=== PATIENT | female | born 1955 | race Caucasian/White ===

== ENCOUNTER → 2017-08-26 | Outpatient (CLI) | payer OTHER | LOC: FIMAGING 13:35 | PROVIDERS: ATTEND Orthopaedic Surgery | DX: Z01.818 Encounter for other preprocedural examination (principal); M17.12 Unilateral primary osteoarthritis, left knee; M25.462 Effusion, left knee; M71.22 Synovial cyst of popliteal space [Baker], left knee ==

== ENCOUNTER 2017-09-02 06:51 | Observation (INO) | payer OTHER ==
[~2017-09-02 06:51] MED LIST: ROPIVACAINE 0.2% 80 MG, EPINEPHrine 0.2 MG, KETOROLAC TROMETHAMINE 30 MG in SYRINGE 0 ML IU ONE; TRANEXAMIC ACID 3,000 MG in NS (SYRINGE) 50 ML IRR ONE
--- NOTE | 2017-09-02 07:12 | PDHPUP ---
History & Physical Update H&P update statement: This history and physical update is based on an assessment of the patient which was completed after admission or registration (within 24 hours), but prior to the surgery/procedure. H&P update: H&P reviewed & patient examined, no change in patient's condition since H&P completed
[2017-09-02] MEDS ORDERED: NON-FORMULARY NEW DRUG (Fluticasone Nasal [Flonase Nasal Spray] 1 SPRAYS) NASAL PRN (07:23)
[2017-09-02] MEDS ORDERED: TRANEXAMIC ACID 3,000 MG/50 ML BAG IRR ONE (07:26)
[2017-09-02] MEDS ORDERED: LR 1,000 ML IV ONE (08:06)
[2017-09-02] MEDS ORDERED: DEXAMETHASONE 4 MG/ML VIAL IVP ONE (08:06)
[2017-09-02] MEDS ORDERED: ceFAZolin 2 GM/SWFI 2 GM/20 ML SYR IVP ONE (08:06)
[2017-09-02] MEDS ORDERED: FAMOTIDINE 20 MG TAB PO ONE (08:06)
[2017-09-02] MEDS ORDERED: ACETAMINOPHEN 325 MG TAB PO ONE (08:06)
[2017-09-02] MEDS ORDERED: FLUTICASONE NASAL 120 SPRAYS/16 GM MDI EACHNARE PRN (08:11)
--- NOTE | 2017-09-02 08:34 | PDANEPAE ---
ANE History of Present Illness 62 yo female with OA for L TKA. ANE Past Medical History - Cardiovascular History Hx Hypertension: Yes Hx Arrhythmias: No Hx Chest Pain: No Hx Coronary Artery / Peripheral Vascular Disease: No Hx CHF / Valvular Disease: No Hx Palpitations: No - Pulmonary History Hx COPD: No Hx Asthma/Reactive Airway Disease: No Hx Recent Upper Respiratory Infection: No Hx Oxygen in Use at Home: No Hx Sleep Apnea: No Sleep Apnea Screening Result - Last Documented: Negative - Neurologic History Hx Cerebrovascular Accident: No Hx Seizures: No Hx Dementia: No - Endocrine History Hx Diabetes: No Obesity: no - Renal History Hx Renal Disorders: No - Liver History Hx Hepatic Disorders: No - Neurological & Psychiatric Hx Hx Neurological and Psychiatric Disorders: Yes Neurological / Psychiatric History Comment: DEPRESSION WITH MENAPAUSE - Cancer History Hx Cancer: Yes Cancer History Comment: SKIN CA - Congenital Disorder History Hx Congenital Disorders: No - GI History GERD: moderate Hx Gastrointestinal Disorders: Yes Gastrointestinal History Comment: GERD - Other Health History Other Health History: NONE - Chronic Pain History Chronic Pain: Yes (R hip) - Surgical History Prior Surgeries: L4/5 fusion,L3 decompression ANE Review of Systems Review of Systems: - Exercise capacity METS (RN): 5 METS ANE Patient History - Allergies Allergies/Adverse Reactions: trazodone Allergy (Verified 08/20/17 11:52) FEET SWELLING - Home Medications Home medications: home medication list seen and reviewed Home Medications: Citalopram [CeleXA] 20 mg PO DAILY 08/20/17 [Last Taken 09/01/17 21:00] Diclofenac Sodium [Voltaren 50 MG (*)] 50 mg PO TID 08/20/17 [Last Taken ] Estradiol [Vivelle-Dot 0.025MG (*)] 0.025 mg TD MO 08/20/17 [Last Taken 08/19/17 ] Fluticasone Nasal [Flonase Nasal Penrose (RX)] 1 sprays NASAL DAILY PRN 08/20/17 [ Last Taken 09/02/17 05:30] Glucosamine/Chondroitin [Glucosamine/Chondroitin (*)] 1 each PO BID 08/20/17 [ Last Taken 08/19/17] Herbals/Supplements -Info Only 1 ea PO DAILY 08/20/17 [Last Taken 08/19/17] Lisinopril [Zestril 40 mg (*)] 40 mg PO HS 08/20/17 [Last Taken 09/01/17 21:00] Omeprazole [Prilosec 20 mg] 20 mg PO DAILY 08/20/17 [Last Taken 09/01/17 21:00] Progesterone, Micronized [Progesterone] 100 mg PO Q2D@21 08/20/17 [Last Taken ] amLODIPine BESYLATE [Norvasc 5 mg (*)] 5 mg PO HS 08/20/17 [Last Taken 09/01/17 21:00] - NPO status NPO Since - Liquids (Date): 09/02/17 NPO Since - Liquids (Time): 05:30 NPO Since - Solids (Date): 09/01/17 NPO Since - Solids (Time): 19:30 - Anes Hx Anes Hx: no prior problems - Smoking Hx Smoking Status: Former smoker Marijuana use: No - Alcohol Use Alcohol Use: Occasionally - Family Anes Hx Family Anes Hx: neg - N/A Family Hx Anesthesia Complications: none ANE Labs/Vital Signs - Vital Signs Blood Pressure: 157/88 Heart Rate: 68 Respiratory Rate: 16 O2 Sat (%): 98 Height: 162.56 cm Weight: 58.967 kg ANE Physical Exam - Airway Neck exam: FROM Mallampati Score: Class 2 Mouth exam: normal dental/mouth exam - Pulmonary Pulmonary: clear to auscultation - Cardiovascular Cardiovascular: regular rate and rhythym - ASA Status ASA Status: II ANE Anesthesia Plan Anesthesia Plan: spinal Regional Anesthesia: adductor canal FNB
[2017-09-02] MEDS ORDERED: fentaNYL 100 MCG/2 ML INJ ONE (09:07)
[2017-09-02] MEDS ORDERED: LIDOCAINE 2% 5 ML SDV ONE (09:07)
[2017-09-02] MEDS ORDERED: PROPOFOL/EMULSION 500 MG/50 ML BOTTLE IV ONE (09:07)
[2017-09-02] MEDS ORDERED: ROPIVACAINE HCL 150 MG/30 ML INJ ONE (09:54)
[2017-09-02] MEDS ORDERED: DIAZEPAM 10 MG/2 ML SYR IVP PRN (10:18)
[2017-09-02] MEDS ORDERED: ALBUTEROL 3 ML DEYVIAL IH PRN (10:18)
[2017-09-02] MEDS ORDERED: ONDANSETRON 4 MG/2 ML VIAL IVP PRN ×2 (10:18→10:39)
[2017-09-02] MEDS ORDERED: fentaNYL 100 MCG/2 ML INJ IVP PRN (10:18)
[2017-09-02] MEDS ORDERED: LR 500 ML IV PRN (10:18)
[2017-09-02] MEDS ORDERED: OXYCODONE/APAP 5/325 TAB PO PRN (10:18)
[2017-09-02] MEDS ORDERED: ENALAPRILAT DIHYDRATE 1.25 MG/ML VIAL IVP PRN (10:18)
[2017-09-02] MEDS ORDERED: NALOXONE HCL 0.4 MG/ML INJ IVP PRN (10:18)
--- NOTE | 2017-09-02 10:38 | POSTOPPROG ---
Post Op Note Date of Operation: 09/02/17 Surgeon: Steff Truong Potato Chip Frier: gerson truong Anesthesiologist: dr. orta Anesthesia: Spinal, Other (Specify) (adductor canal block) Pre-op Diagnosis: left knee OA Post-op Diagnosis: same Indication: left knee pain due to OA that failed conservative measures Procedure: L TKA robot assisted Findings: severe knee OA Inf/Abcess present in the surg proc area at time of surgery?: No EBL: 50-100
[2017-09-02] MEDS ORDERED: PROMETHAZINE HCL 25 MG/ML INJ IVP PRN (10:39)
[2017-09-02] MEDS ORDERED: DIPHENOXYLATE/ATROPINE LOMOTIL 1 TAB PO PRN (10:39)
[2017-09-02] MEDS ORDERED: BISACODYL 10 MG SUPP PR PRN (10:39)
[2017-09-02] MEDS ORDERED: ONDANSETRON DISINTEGRATING 4 MG TAB PO PRN (10:39)
[2017-09-02] MEDS ORDERED: MAGNESIUM HYDROXIDE 30 ML UDCUP PO PRN (10:39)
[2017-09-02] MEDS ORDERED: PROMETHAZINE HCL 25 MG SUPPR PR PRN (10:39)
[2017-09-02] MEDS ORDERED: diphenhydrAMINE 25 MG CAP PO PRN (10:39)
[2017-09-02] MEDS ORDERED: METOCLOPRAMIDE 10 MG/2 ML VIAL IVP PRN (10:39)
[2017-09-02] MEDS ORDERED: LACTULOSE 20 GM/30 ML UDCUP PO PRN (10:39)
[2017-09-02] MEDS ORDERED: CYCLOBENZAPRINE 10 MG TAB PO PRN (10:39)
[2017-09-02] MEDS ORDERED: TEMAZEPAM 15 MG CAP PO PRN (10:39)
[2017-09-02] MEDS ORDERED: POLYETHYLENE GLYCOL 3350 17 GM PKT PO PRN (10:39)
--- NOTE | 2017-09-02 10:45 | POSTANESTH ---
Post Anesthetic Evaluation Cardiovascular Status: Normal, Stable Respiratory Status: Normal, Stable Level of Consciousness/Mental Status: Can Participate in Eval, Alert and Oriented Pain Control: Adequate, Prn Tx Ordered Nausea/Vomiting Control: Adequate, Prn Tx Ordered Complications Possibly Related to Anesthesia: None Noted (L adductor canal block placed with US guidance upon arrival in PACU. See anesthesia record for note. See nurses sheet for VS. Pt moving R LE, L LE still immobile secondary to SAB.)
[2017-09-02] MEDS ORDERED: LR 1,000 ML IV SCH (11:00)
[2017-09-02] MEDS ORDERED: ceFAZolin 2 GM/DEXTROSE 100 ML IV SCH (14:00)
[2017-09-02] MEDS: oxyCODONE IR 5 MG TAB PO PRN ×2 (14:41→19:23)
[2017-09-02] MEDS: ACETAMINOPHEN 325 MG TAB PO SCH ×2 (14:45→19:22)
[2017-09-02] MEDS: ceFAZolin 2 GM/SWFI 2 GM/20 ML SYR IVP SCH ×2 (16:01→20:56)
[2017-09-02] MEDS: SENNOSIDES/DOCUSATE SODIUM TAB PO SCH (20:57)
[2017-09-02] MEDS: ASPIRIN 81 MG CHEWABLE TAB PO SCH (20:57)
[2017-09-02] MEDS: FAMOTIDINE 20 MG TAB PO SCH (20:58)
[2017-09-02] MEDS ORDERED: LISINOPRIL 40 MG TAB PO SCH (21:00)
[2017-09-02] MEDS ORDERED: amLODIPine BESYLATE 5 MG TAB PO SCH (21:00)
[2017-09-03] MEDS: oxyCODONE IR 5 MG TAB PO PRN ×5 (00:07→11:13)
[2017-09-03] MEDS: ACETAMINOPHEN 325 MG TAB PO SCH ×3 (00:07→11:13)
[2017-09-03 04:01] VITALS: RESP 16
[2017-09-03] MEDS: SENNOSIDES/DOCUSATE SODIUM TAB PO SCH (07:49)
[2017-09-03] MEDS: ASPIRIN 81 MG CHEWABLE TAB PO SCH (07:51)
[2017-09-03] MEDS: FAMOTIDINE 20 MG TAB PO SCH (07:52)
--- NOTE | 2017-09-03 08:35 | SOAPPROG ---
SOAP Progress Note Assessment/Plan: Assessment: Patient is doing well POD 1 s/p L TKA Pain management: pain is well controlled on oral pain meds. VTE ppx: recommend aspirin 81 mg BID for 4 weeks, cont KEILY and SCDs Anemia: level is expected initially postop. Asymptomatic. Continue to monitor D/c planning: d/c to home today pending release from PT Plan: 09/03/17 08:34 Subjective: Kirsten is doing well today, denies SOB, chest pain and N/V. Objective: Vital Signs Temp Pulse Resp BP Pulse Ox 36.5 C 71 16 150/76 H 94 09/03/17 04:00 09/03/17 04:00 09/03/17 04:00 09/03/17 04:00 09/03/17 04:00 Laboratory Results 09/03/17 04:17 09/02/17 09/03/17 09/04/17 05:59 05:59 05:59 Intake Total 3405 Output Total 2970 500 Balance 435 -500 LLE: incision dressing is clean and dry, NVI, +pf/df ICD10 Worksheet Patient Problems: Problems Problem Status Onset Primary localized osteoarthritis of left knee Acute
[2017-09-03] MEDS ORDERED: NON-FORMULARY NEW DRUG (Omeprazole [Prilosec 20 Mg] 20 MG) PO SCH (09:00)
[2017-09-03] MEDS ORDERED: CITALOPRAM 20 MG TAB PO SCH (09:00)
[2017-09-03] MEDS ORDERED: PANTOPRAZOLE SODIUM 40 MG TAB PO SCH (09:00)
--- NOTE | 2017-09-03 09:07 | GOP ---
[f rep st] OPERATIVE REPORT DATE OF OPERATION: SURGEON: Brenna Ford MD TILE GRADER: JOSÉ LUIS De Leon ANESTHESIA: Spinal. PREOPERATIVE DIAGNOSIS: Left knee osteoarthritis. POSTOPERATIVE DIAGNOSIS: Left knee osteoarthritis. PROCEDURE PERFORMED: Left total knee arthroplasty with computer navigation, robotic assist. FINDINGS: ESTIMATED BLOOD LOSS: 30 cc. INDICATIONS: The patient is a 62-year-old female with severe and progressive pain and deformity of t he left knee unresponsive to conservative care. The risks and benefits of surgical intervention were explained in detail. DESCRIPTION OF PROCEDURE: The patient was brought to the operative room and placed on the table in t he supine position. Spinal anesthesia was induced without difficulty. A pneumatic tourniquet was appl ied about the left proximal thigh, and the leg was prepped and draped in a sterile fashion. The leg h older was applied. After exsanguination by elevation the tourniquet was inflated to 250 mmHg. Incision was made anterior medial from the tibial tuberosity to a point 2 cm proximal to the superior pole of the patella. Medial parapatellar arthrotomy was carried out from the superior pole of the pa tella and posteriorly in line with the fibers of the Type II VMO. The medial collateral ligament was elevated and the infrapatellar fat pad was resected. The patella was everted and the articular surface was excised. A 32 mm patellar button was placed. Attention was turned first to the distal aspect of the femur. After exposure of the femur, 2 half pi ns were placed for fixation of the femoral array. In a similar fashion, 2 pins were placed anteromed ial on the tibia for fixation of the tibial array. External land marking and registration of the hip center was performed without difficulty. Internal femoral and tibial registration was carried out w ithout difficulty and the femoral and tibial checkpoints were placed and verified for accuracy. Attention was turned to the femur. The foot print for the size 3 femoral component was cut with the saw using the [employer] robotic system and verified for accuracy against the CT based plan. In a similar f ashion, the saw was used to cut the footprint for the size 4 tibial component using the JOHNATHAN system an d verified for accuracy against the CT based plan. The tibial articular surface was excised without d ifficulty, followed by the intercondylar box cut. The knee was extended and the remnants of the medial and lateral meniscus were excised. The posterior capsule was injected with ropivacaine, epinephrine and Toradol. A size 4 x 9 mm tibial tray was pos itioned. Trial reduction was then carried out. There was excellent range of motion, alignment, and st ability using the 9 mm polyethylene. All trials were then removed. The joint was thoroughly irrigated and carefully dried. The Press-Fit c omponents were implanted. The permanent 9 mm polyethylene was placed without difficulty. The tourniquet was deflated and all bleeders were coagulated. The wound was thoroughly irrigated and closed using interrupted sutures of 2-0 Vicryl for the joint capsule. The subcu was closed with 3-0 V icryl and the skin with 4-0 Monocryl. Dermabond and Steri-Strips were applied followed by a compress shea dressing. The patient was then moved from the operating room to the recovery room in good conditi on, having tolerated the procedure well. /[id number]/MODL
[2017-09-03 11:17] VITALS: BP 129/72; PULSE 65; TEMP 97.1; O2SAT 94
== END 2017-09-03 11:58 | disposition home or self-care (01) ==
LOC: INTOOBSV 06:51 → F3N 06:51
PROVIDERS: ADMIT Orthopaedic Surgery; ATTEND Orthopaedic Surgery
DX: M17.12 Unilateral primary osteoarthritis, left knee (principal); I10 Essential (primary) hypertension; K21.9 Gastro-esophageal reflux disease without esophagitis; Z87.891 Personal history of nicotine dependence; Z98.1 Arthrodesis status
CPT/HCPCS: 20985; 27447; 73560; 97116; 97161; 97165; G0378; J0171; J0690; J1100; J1885; J2704; J2795; J3010

== ENCOUNTER → 2018-12-27 | Outpatient (CLI) | payer OTHER, MEDICARE | LOC: BMCIMAGING 13:26 ==